=== PATIENT | female | born 1950 | race Caucasian/White ===

== ENCOUNTER → 2023-01-28 | Day surgery (SDC) | payer OTHER ==
--- NOTE | 2023-01-28 11:43 | RAD REPORT ---
EXAM DESCRIPTION: US - Breast Core BX w/US Guidance - 01/28/2023 10:41 am CLINICAL HISTORY: K92.8 COMPARISON: 01/12/2023 ultrasound TECHNIQUE: The risks, benefits alternatives to the procedure were explained to the patient and infor med consent obtained. Skin and subcutaneous tissues anesthetized with lidocaine. Under sonographic guidance, 5 x 14 gauge vacuum assisted core biopsies of the mass within the left br east obtained. 2 centimeter specimens taken. Tissue given to pathology. Subsequently a localizing clip was placed into the mass. Patient experienced no immediate complication IMPRESSION: Vacuum assisted core biopsies of the left breast mass
== END ==
LOC: DS 09:46
PROVIDERS: ATTEND Obstetrics & Gynecology
DX: N63.0 Unspecified lump in unspecified breast (principal); N62 Hypertrophy of breast; N60.12 Diffuse cystic mastopathy of left breast; N60.32 Fibrosclerosis of left breast
CPT/HCPCS: 19083; 88305